=== PATIENT | female | born 1955 | race Two or more races ===

== ENCOUNTER → 2017-10-04 | Outpatient (CLI) | payer OTHER ==
[~2017-10-04] MED LIST: ECO81 PO; METFORMIN HCL1000 MG PO; METFORMIN500 M1 PO; MOTRIN800 MG PO; SIMVASTATIN10 M1 PO
== END | disposition home or self-care (01) ==
LOC: MA 08:25
PROC: BH02ZZZ Plain Radiography of Bilateral Breasts (ICD-10-PCS; principal; 2017-10-04)
DX: Z12.31 Encounter for screening mammogram for malignant neoplasm of breast (principal)
CPT/HCPCS: 77067

== ENCOUNTER 2019-09-29 06:36 | Observation (INO) | payer BC ==
[~2019-09-29] VITALS: Ht 152.4 cm; Wt 57.2 kg
[2019-09-29] MEDS ORDERED: FORTAMET500 M1 PO (07:20)
[2019-09-29] MEDS ORDERED: SIMVASTATIN5 M2 (07:22)
[2019-09-29 07:30] LABS: BASOPHIL % 0.6 % (0-2); PLATELET COUNT 224 x10^3mcL (130-400); RED CELL DISTRIBUTION WIDTH 14.4 % (11.5-14.5)
[2019-09-29 07:33] LABS: CALCIUM 8.5 mg/dL (8.5-10.1); CARBON DIOXIDE 26.2 mmol/L (21-32); CHLORIDE SERUM 103 mmol/L (98-107); CREATININE SERUM 0.8 mg/dL (0.6-1.0); GFR1 > 60 mL/min; GLUCOSE SERUM 189 mg/dL (74-106); POTASSIUM SERUM 3.7 mmol/L (3.5-5.1); SODIUM SERUM 138 mmol/L (136-145)
[2019-09-29 07:37] LABS: ALBUMIN 3.5 g/dL (3.4-5.0); ALKALINE PHOSPHATASE 72 U/L (46-116); ALT/SGPT 28 U/L (14-59); AST/SGOT 6 U/L (15-37); BILIRUBIN TOTAL 0.1 mg/dL (0.20-1.00); LIPASE 181 IU/L (73-393); TOTAL PROTEIN, SERUM 7.3 g/dL (6.4-8.2)
[2019-09-29 07:38] LABS: CHOLESTEROL 125 mg/dL (<200); CHOLESTEROL/HDL RATIO 3.7; HDL CHOLESTEROL 34 mg/dL (40-60); TRIGLYCERIDES 275 mg/dL (<150)
[2019-09-29 07:47] LABS: T3 TOTAL 0.92 ng/mL
[2019-09-29 07:54] LABS: FREE T4 1.02 ng/dL (0.76-1.46); FREE THYROXINE INDEX 2.4 ug/dL (1.4-4.5); T4(THYROXINE) 7.6 ug/dL (4.7-13.3)
[2019-09-29 14:32] VITALS: BP 153/80
[2019-09-29 17:59] VITALS: BP 157/92
[2019-09-29 20:45] VITALS: BP 117/70
[2019-09-30 05:38] VITALS: BP 119/70
[2019-09-30 06:37] LABS: BASOPHIL % 0.8 % (0-2); PLATELET COUNT 221 x10^3mcL (130-400); RED CELL DISTRIBUTION WIDTH 14.1 % (11.5-14.5)
[2019-09-30 07:00] LABS: CALCIUM 8.8 mg/dL (8.5-10.1); CARBON DIOXIDE 26.3 mmol/L (21-32); CHLORIDE SERUM 105 mmol/L (98-107); CREATININE SERUM 0.7 mg/dL (0.6-1.0); GFR1 > 60 mL/min; GLUCOSE SERUM 128 mg/dL (74-106); SODIUM SERUM 140 mmol/L (136-145)
[2019-09-30 08:35] VITALS: BP 145/78
[2019-09-30 12:42] VITALS: BP 142/77
== END 2019-09-30 14:46 | disposition home or self-care (01) ==
LOC: ED 06:36 → DU 09:10
PROVIDERS: Specialist; ADMIT Internal Medicine Pulmonary Disease
DX: R07.89 Other chest pain (principal); J45.909 Unspecified asthma, uncomplicated
CPT/HCPCS: 82962; 83880; 84439; A9500; G0378; J1644; J2785; Q0092